=== PATIENT | male | born 1950 | race Caucasian/White ===

== ENCOUNTER 2016-10-18 11:16 | Inpatient (IN) | payer OTHER ==
[2016-10-18 11:47] VITALS: BMI 24.1
--- NOTE | 2016-10-18 13:26 | HP ---
COWS - Scale Resting Pulse: 0= [place] 80 or Below Sweatin= Chills/Flushing Restless Observation: 1= Difficult to Sit Still Pupil Size: 0= Normal to Room Light Bone or Joint Aches: 1= Mild Discomfort Runny Nose/ Eye Tearin= Nasal Congestion GI Upset > 30mins: 1= Stomach Cramp Tremor Observation: 2= Slight Tremor Visible Yawning Observation: 1= 1-2x During Session Anxiety or Irritability: 1=Feels Anxious/Irritable Goose Flesh Skin: 0=Smooth Skin COWS Score: 9 Admission ROS BHS - HPI Chief Complaint: I need to get clean, start off good Allergies/Adverse Reactions: Allergies Allergy/AdvReac Type Severity Reaction Status Date / Time Penicillins Allergy Verified 10/18/16 13:18 History of Present Illness: 66 yo gentleman here for detox from heroin - history of being drug free for seven years and recently relapsed with a girl. No seizures, does had black outs. Exam Limitations: Clinical Condition - Ebola screening Have you traveled outside of the country in the last 21 days: No Have you had contact with anyone from an Ebola affected area: No Have you been sick,other than usual withdrawal symptoms: No Do you have a fever: No - Review of Systems Constitutional: Loss of Appetite, Malaise, Changes in sleep, Weakness EENT: reports: Blurred Vision, Nose Congestion Respiratory: reports: No Symptoms reported Cardiac: reports: No Symptoms Reported GI: reports: Diarrhea, Poor Appetite, Indigestion : reports: No Symptoms Reported Musculoskeletal: reports: Back Pain, Muscle Pain Neuro: reports: Headache Endocrine: reports: No Symptoms Reported Hematology: reports: No Symptoms Reported Psychiatric: reports: Judgement Intact, Mood/Affect Appropiate, Orientated x3, Anxious Other Systems: Reviewed and Negative Patient History - Patient Medical History Hx Anemia: No Hx Asthma: No Hx Cancer: No Hx Cardiac Disorders: No Hx Congestive Heart Failure: No Hx Hypertension: No Hx Hypercholesterolemia: No Hx Pacemaker: No HX Cerebrovascular Accident: No Hx Seizures: No Hx Diabetes: No Hx Gastrointestinal Disorders: No Hx Liver Disease: No Hx Genitourinary Disorders: No Hx Sexually Transmitted Disorders: No Hx Renal Disease (ESRD): No Hx Thyroid Disease: No Hx Human Immunodeficiency Virus (HIV): No Hx Hepatitis C: Yes (treated with Harvoni and 'cleared') Hx Depression: Yes (never treated) Hx Suicide Attempt: No Hx Bipolar Disorder: No Hx Schizophrenia: No - Patient Surgical History Past Surgical History: Yes Other Surgical History: abscess 1996 I & D left shoulder due to heroin use - PPD History Previous Implant?: Yes Documented Results: Negative w/o proof PPD to be Administered?: Yes - Reproductive History Patient is a Female of Child Bearing Age (11 -55 yrs old): No (male) - Smoking Cessation Smoking history: Former smoker Have you smoked in the past 12 months: No Initiated information on smoking cessation: No - Substance & Tx. History Hx Alcohol Use: No Hx Substance Use: Yes Substance Use Type: Heroin Hx Substance Use Treatment: Yes - Substances Abused Heroin Route: Injection Frequency: Daily Amount used: 5 bags Age of first use: 18 Date of Last Use: 10/18/16 Family Disease History - Family Disease History Family Disease History: CA: Mother (), Sister (6 (3 living)), Other: Father (, age 102), Mother, Brother (7 (3 living), 'natural cause'), Sister Admission Physical Exam [facility] - Vital Signs Vital Signs: Vital Signs - 24 hr 10/18/16 11:45 Temperature 97.1 F L Pulse Rate 80 Respiratory 18 Rate Blood Pressure 138/70 - Physical General Appearance: Yes: Nourished, Appropriately Dressed, Mild Distress, Anxious HEENTM: Yes: Hearing grossly Normal, Normocephalic, Normal Voice, Pharynx Normal Respiratory: Yes: Normal Breath Sounds, No Respiratory Distress Neck: Yes: No masses,lesions,Nodules, Supple Breast: Yes: Breast Exam Deferred Cardiology: Yes: Regular Rhythm, Regular Rate Abdominal: Yes: Soft Genitourinary: Yes: Within Normal Limits Back: Yes: Decreased Range of Motion Musculoskeletal: Yes: full range of Motion, Gait Steady Extremities: Yes: Normal Inspection, Non-Tender Neurological: Yes: Fully Oriented, Alert, Normal Mood/Affect, Normal Response Integumentary: Yes: Normal Color, Warm, Track Oden (both arms, right hand with slightly red raised non painful lesion) Lymphatic: Yes: Within Normal Limits - Diagnostic (1) Uncomplicated opioid dependence Current Visit: Yes Status: Chronic (2) Hepatitis C Current Visit: Yes Status: Resolved Comment: treated with nikki Villalba Cleared for Admission [facility] - Detox or Rehab [facility] Level of Care: Medically Managed Detox Regimen/Protocol: Methadone BHS Breath Alcohol Content Breath Alcohol Content: 0 Urine Drug Screen - Results Drug Screen Negative: No Urine Drug Screen Results: OPI-Opiates
[2016-10-18] MEDS ORDERED: LOPERAMIDE HCL 2 MG CAPSULE PO PRN (13:34)
[2016-10-18] MEDS ORDERED: diphenhydrAMINE HCL 50 MG CAPSULE PO PRN (13:34)
[2016-10-18] MEDS ORDERED: MAG HYDROX/AL HYDROX/SIMETH 30 ML UNIT-DOSE CUP PO PRN (13:34)
[2016-10-18] MEDS ORDERED: IBUPROFEN 400 MG TABLET (FP) PO PRN (13:34)
[2016-10-18] MEDS ORDERED: ACETAMINOPHEN 325 MG TABLET (FP) PO PRN (13:34)
[2016-10-18] MEDS ORDERED: MENTHOL/PHENOL 1 EACH UD MM PRN (13:34)
[2016-10-18] MEDS ORDERED: MAGNESIUM HYDROX 2400MG/30ML ORAL SUSPENSION 30 ML CUP PO PRN (13:34)
[2016-10-18] MEDS ORDERED: MAGNESIUM CITRATE 300 ML BOTTLE PO PRN (13:34)
[2016-10-18] MEDS ORDERED: guaiFENesin/D-METHORPHAN HB 10 ML UNIT-DOSE CUPS PO PRN (13:34)
[2016-10-18] MEDS ORDERED: P-EPHED 60MG/TRIPROLIDI 2.5MG TABLET PO PRN (13:34)
[2016-10-18] MEDS ORDERED: TRIAMCINOLONE ACET 0.1% CREAM 15 GM TUBE TP PRN (13:40)
[2016-10-18] MEDS ORDERED: METHADONE HCL 10 MG TABLET (FOR DETOX USE ONLY) PO ONE ×3 (15:00→23:00)
[2016-10-18] MEDS: diazePAM 5 MG TABLET PO PRN (18:52)
[2016-10-18] MEDS: THIAMINE HCL 100 MG TABLET (FP) PO SCH (22:26)
[2016-10-18 23:19] LABS: URINE APPEARANCE SLCLOUDY; URINE BILIRUBIN NEGATIVE (NEGATIVE); URINE BLOOD NEGATIVE (NEGATIVE); URINE COLOR YELLOW; URINE GLUCOSE (UA) NEGATIVE (NEGATIVE); URINE KETONE NEGATIVE (NEGATIVE); URINE LEUK ESTERASE NEGATIVE (NEGATIVE); URINE NITRITE NEGATIVE (NEGATIVE); URINE PROTEIN NEGATIVE (NEGATIVE); URINE UROBILINOGEN NEGATIVE mg/dL (0.2-1.0)
[2016-10-19] MEDS ORDERED: METHADONE HCL 10 MG TABLET (FOR DETOX USE ONLY) PO ONE (10:00)
[2016-10-19] MEDS: PRENATAL VITAMINS W/ FOLIC ACID TABLET (FP) PO SCH (10:16)
[2016-10-19 10:27] LABS: MCH 31.5 pg (25.7-33.7); MCHC 34.4 g/dl (32.0-35.9); MEAN CELL VOLUME 91.7 fl (80-96); MEAN PLT VOLUME 8.5 fl (7.5-11.1); PLATELET COUNT 172 K/MM3 (134-434); RDW 13.1 % (11.9-15.9); WHITE BLOOD COUNT 5.7 K/mm3 (4.0-10.0)
[2016-10-19 10:52] LABS: ALBUMIN 3.4 g/dl (3.4-5.0); ANION GAP 5 (8-16); CALCIUM 8.5 mg/dL (8.5-10.1); CO2 29 mmol/L (21-32); GLUCOSE,RANDOM 97 mg/dL (74-106)
[2016-10-19 10:56] LABS: ALK PHOS 78 U/L (45-117); BILIRUBIN,TOTAL 0.4 mg/dL (0.2-1.0); CREATININE 1.2 mg/dL (0.7-1.3); SGOT/AST 19 U/L (15-37); SGPT/ALT 26 U/L (12-78); TOT PROT 7.1 g/dl (6.4-8.2)
--- NOTE | 2016-10-19 11:59 | PN ---
S COWS - Scale Resting Pulse: 0= [place] 80 or Below Sweatin= Chills/Flushing Restless Observation: 3= Extraneous Movement Pupil Size: 1= Pupils >than Normal Bone or Joint Aches: 2= Severe Diffuse Aches Runny Nose/ Eye Tearin= Runny Nose/Eyes GI Upset > 30mins: 2= Nausea/Diarrhea Tremor Observation of Outstretched Hands: 2= Slight Tremor Visible Yawning Observation: 1= 1-2x During Session Anxiety or Irritability: 2=Irritable/Anxious Goose Flesh Skin: 0=Smooth Skin COWS Score: 16 S Progress Note (SOAP) Subjective: ALERT,IRRITABLE,ANXIOUS,INTERRUPTED SLEEP,TREMOR,PAIN IN THE BODY AND BACK Objective: 10/19/16 11:56 Vital Signs Temperature 97 F L 10/19/16 10:34 Pulse Rate 69 10/19/16 10:34 Respiratory Rate 16 10/19/16 10:34 Blood Pressure 137/83 10/19/16 10:34 O2 Sat by Pulse Oximetry (%) EKG NSR,EMMA ECG Laboratory Last Values WBC 5.7 K/mm3 (4.0-10.0) 10/19/16 07:45 RBC 3.74 M/mm3 (4.00-5.60) L 10/19/16 07:45 Hgb 11.8 GM/dL (11.7-16.9) 10/19/16 07:45 Hct 34.3 % (35.4-49) L 10/19/16 07:45 MCV 91.7 fl (80-96) 10/19/16 07:45 MCH 31.5 pg (25.7-33.7) 10/19/16 07:45 MCHC 34.4 g/dl (32.0-35.9) 10/19/16 07:45 RDW 13.1 % (11.9-15.9) 10/19/16 07:45 Plt Count 172 K/MM3 (134-434) 10/19/16 07:45 MPV 8.5 fl (7.5-11.1) 10/19/16 07:45 Sodium 140 mmol/L (136-145) 10/19/16 07:45 Potassium 4.2 mmol/L (3.5-5.1) 10/19/16 07:45 Chloride 106 mmol/L (98-107) 10/19/16 07:45 Carbon Dioxide 29 mmol/L (21-32) 10/19/16 07:45 Anion Gap 5 (8-16) L 10/19/16 07:45 BUN 23 mg/dL (7-18) H 10/19/16 07:45 Creatinine 1.2 mg/dL (0.7-1.3) 10/19/16 07:45 Creat Clearance w eGFR > 60 (>60) 10/19/16 07:45 Random Glucose 97 mg/dL (74-106) 10/19/16 07:45 Calcium 8.5 mg/dL (8.5-10.1) 10/19/16 07:45 Total Bilirubin 0.4 mg/dL (0.2-1.0) 10/19/16 07:45 AST 19 U/L (15-37) 10/19/16 07:45 ALT 26 U/L (12-78) 10/19/16 07:45 Alkaline Phosphatase 78 U/L (45-117) 10/19/16 07:45 Total Protein 7.1 g/dl (6.4-8.2) 10/19/16 07:45 Albumin 3.4 g/dl (3.4-5.0) 10/19/16 07:45 Urine Color Yellow 10/18/16 23:10 Urine Appearance Slcloudy 10/18/16 23:10 Urine pH 5.0 (5.0-8.0) 10/18/16 23:10 Ur Specific [place] 1.025 (1.005-1.025) 10/18/16 23:10 Urine Protein Negative (NEGATIVE) 10/18/16 23:10 Urine Glucose (UA) Negative (NEGATIVE) 10/18/16 23:10 Urine Ketones Negative (NEGATIVE) 10/18/16 23:10 Urine Blood Negative (NEGATIVE) 10/18/16 23:10 Urine Nitrite Negative (NEGATIVE) 10/18/16 23:10 Urine Bilirubin Negative (NEGATIVE) 10/18/16 23:10 Urine Urobilinogen Negative mg/dL (0.2-1.0) 10/18/16 23:10 Ur Leukocyte Esterase Negative (NEGATIVE) 10/18/16 23:10 Assessment: 10/19/16 11:57 WITHDRAWAL SYMPTOM Plan: CONTINUE DETOX,ENCOURAGE ORAL FLUID,REPEAT BMP IN AM
--- NOTE | 2016-10-19 12:53 | EKG ---
Test Reason : Blood Pressure : / mmHG Vent. Rate : 078 BPM Atrial Rate : 078 BPM P-R Int : 178 ms QRS Dur : 076 ms QT Int : 414 ms P-R-T Axes : 075 007 021 degrees QTc Int : 471 ms POOR DATA QUALITY, INTERPRETATION MAY BE ADVERSELY AFFECTED NORMAL SINUS RHYTHM NORMAL ECG NO PREVIOUS ECGS AVAILABLE Confirmed by MERE HEAD MD ([id number]) on 10/19/2016 12:53:26 PM Referred By: Confirmed By:MERE HEAD MD
[2016-10-19] MEDS: THIAMINE HCL 100 MG TABLET (FP) PO SCH (22:18)
--- NOTE | 2016-10-20 08:41 | CONSULT ---
[facility] Psychiatric Consult - Data Date of interview: 10/20/16 Admission source: [facility] Identifying data: This is 66 years old male with no psychiatric hopspitalization history intoxicated with: Opioids Substance Abuse History: - Smoking Cessation. Smoking history: Former smoker. Have you smoked in the past 12 months: No. Initiated information on smoking cessation: No. - Substance & Tx. History. Hx Alcohol Use: No. Hx Substance Use: Yes. Substance Use Type: Heroin. Hx Substance Use Treatment: Yes. - Substances Abused. Heroin. Route: Injection. Frequency: Daily. Amount used: 5 bags. Age of first use: 18. Date of Last Use: 10/18/16 Medical History: Hep C+ Psychiatric History: Denies past psychiatric hiistory Physical/Sexual Abuse/Trauma History: Denies Additional Comment: Observation. Detox Unit Care Protocol Mental Status Exam - Mental Status Exam Alert and Oriented to: Person Cognitive Function: Fair Patient Appearance: Unkempt Mood: Anxious Affect: Mood Congruent Patient Behavior: Cooperative Speech Pattern: Appropriate Voice Loudness: Normal Thought Process: Goal Oriented Thought Disorder: Being Controlled Hallucinations: Denies Suicidal Ideation: Denies Homicidal Ideation: Denies Insight/Judgement: Fair Sleep: Difficulty falling asleep Appetite: Fair Muscle strength/Tone: Normal Gait/Station: Normal Additional Comments: Observation. 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 Detox Unit Care Protocol
[2016-10-20] MEDS ORDERED: METHADONE HCL 5 MG TABLET (FOR DETOX USE ONLY) PO ONE (10:00)
[2016-10-20] MEDS: PRENATAL VITAMINS W/ FOLIC ACID TABLET (FP) PO SCH (10:11)
[2016-10-20] MEDS: diazePAM 5 MG TABLET PO PRN ×3 (10:13→22:06)
[2016-10-20 10:22] LABS: ANION GAP 7 (8-16); CO2 30 mmol/L (21-32); CREATININE 1.1 mg/dL (0.7-1.3); GLUCOSE,RANDOM 98 mg/dL (74-106)
--- NOTE | 2016-10-20 11:17 | PN ---
BHS COWS - Scale Resting Pulse: 0= [place] 80 or Below Sweatin= Chills/Flushing Restless Observation: 3= Extraneous Movement Pupil Size: 1= Pupils >than Normal Bone or Joint Aches: 2= Severe Diffuse Aches Runny Nose/ Eye Tearin= Runny Nose/Eyes GI Upset > 30mins: 3= Vomiting/Diarrhea Tremor Observation of Outstretched Hands: 2= Slight Tremor Visible Yawning Observation: 1= 1-2x During Session Anxiety or Irritability: 2=Irritable/Anxious Goose Flesh Skin: 0=Smooth Skin COWS Score: 17 BHS Progress Note (SOAP) Subjective: ALERT,IRRITABLE,ANXIOUS,INTERRUPTED SLEEP,TREMOR,PAIN IN THE BODY AND BACK Objective: 10/20/16 11:15 Vital Signs Temperature 98.4 F 10/20/16 10:36 Pulse Rate 66 10/20/16 10:36 Respiratory Rate 16 10/20/16 10:36 Blood Pressure 148/95 10/20/16 10:36 O2 Sat by Pulse Oximetry (%) Assessment: 10/20/16 11:16 WITHDRAWAL SYMPTOM Plan: CONTINUE DETOX,ENCOURAGE ORAL FLUID,REPEAT BMP PENDING
[2016-10-20] MEDS: THIAMINE HCL 100 MG TABLET (FP) PO SCH (22:06)
--- NOTE | 2016-10-21 09:55 | PN ---
S Progress Note (SOAP) Subjective: ALERT,IRRITABLE,ANXIOUS,INTERRUPTED SLEEP,PAIN IN THE BODY AND BACK Objective: 10/21/16 09:54 Vital Signs Temperature 97.7 F 10/21/16 09:21 Pulse Rate 58 L 10/21/16 09:21 Respiratory Rate 18 10/21/16 09:21 Blood Pressure 147/94 10/21/16 09:21 O2 Sat by Pulse Oximetry (%) Assessment: 10/21/16 09:54 WITHDRAWAL SYMPTOM Plan: CONTINUE DETOX
[2016-10-21] MEDS ORDERED: METHADONE HCL 5 MG TABLET (FOR DETOX USE ONLY) PO ONE (10:00)
[2016-10-21] MEDS: PRENATAL VITAMINS W/ FOLIC ACID TABLET (FP) PO SCH (10:03)
[2016-10-21] MEDS: diazePAM 5 MG TABLET PO PRN (10:04)
[2016-10-21] MEDS: hydrOXYzine PAMOATE 50 MG CAPSULE (FP) PO PRN (14:19)
[2016-10-21] MEDS: THIAMINE HCL 100 MG TABLET (FP) PO SCH (22:24)
--- NOTE | 2016-10-22 09:39 | PN ---
BHS Progress Note (SOAP) Subjective: lbp, anxious, needs cane Objective: 10/22/16 09:37 Vital Signs Temperature 97.9 F 10/21/16 21:24 Pulse Rate 65 10/21/16 21:24 Respiratory Rate 18 10/22/16 00:30 Blood Pressure 134/88 10/21/16 21:24 O2 Sat by Pulse Oximetry (%) Laboratory Tests 10/18/16 10/19/16 10/19/16 23:10 07:45 07:45 WBC 5.7 RBC 3.74 L Hgb 11.8 Hct 34.3 L MCV 91.7 MCH 31.5 MCHC 34.4 RDW 13.1 Plt Count 172 MPV 8.5 Sodium 140 Potassium 4.2 Chloride 106 Carbon Dioxide 29 Anion Gap 5 L BUN 23 H Creatinine 1.2 Creat Clearance w eGFR > 60 Random Glucose 97 Calcium 8.5 Total Bilirubin 0.4 AST 19 ALT 26 Alkaline Phosphatase 78 Total Protein 7.1 Albumin 3.4 Urine Color Yellow Urine Appearance Slcloudy Urine pH 5.0 Ur Specific [place] 1.025 Urine Protein Negative Urine Glucose (UA) Negative Urine Ketones Negative Urine Blood Negative Urine Nitrite Negative Urine Bilirubin Negative Urine Urobilinogen Negative Ur Leukocyte Esterase Negative RPR Titer 10/19/16 10/20/16 07:45 07:00 WBC RBC Hgb Hct MCV MCH MCHC RDW Plt Count MPV Sodium 141 Potassium 4.8 Chloride 104 Carbon Dioxide 30 Anion Gap 7 L BUN 17 D Creatinine 1.1 Creat Clearance w eGFR Random Glucose 98 Calcium 9.0 Total Bilirubin AST ALT Alkaline Phosphatase Total Protein Albumin Urine Color Urine Appearance Urine pH Ur Specific [place] Urine Protein Urine Glucose (UA) Urine Ketones Urine Blood Urine Nitrite Urine Bilirubin Urine Urobilinogen Ur Leukocyte Esterase RPR Titer Nonreactive pt aox3 in nad lying in bed Assessment: 10/22/16 09:38 withdrawal sx's Plan: cont. detox increase fluids cane d/c in am
[2016-10-22] MEDS ORDERED: METHADONE HCL 10 MG TABLET (FOR DETOX USE ONLY) PO ONE (10:00)
[2016-10-22] MEDS: PRENATAL VITAMINS W/ FOLIC ACID TABLET (FP) PO SCH (10:10)
[2016-10-22] MEDS: hydrOXYzine PAMOATE 50 MG CAPSULE (FP) PO PRN (20:11)
[2016-10-22] MEDS: THIAMINE HCL 100 MG TABLET (FP) PO SCH (22:26)
[2016-10-23] MEDS ORDERED: METHADONE HCL 5 MG TABLET (FOR DETOX USE ONLY) PO ONE (06:00)
[2016-10-23 06:16] VITALS: BP 147/89; PULSE 60; TEMP 97.9
--- NOTE | 2016-10-23 08:38 | DS ---
[facility] Detox Discharge Summary Admission Date: 10/18/16 Discharge Date: 10/23/16 - History Present History: Opioid Dependence - Physical Exam Results Vital Signs: Vital Signs Temperature 97.9 F 10/23/16 06:15 Pulse Rate 60 10/23/16 06:15 Respiratory Rate 16 10/23/16 06:15 Blood Pressure 147/89 10/23/16 06:15 O2 Sat by Pulse Oximetry (%) - Treatment Hospital Course: Detox Protocol Followed, Detoxed Safely, Responded well, Discharged Condition Good, Rehab Referral Accepted - Medication Discharge Medications: Ambulatory Orders Triamcinolone Acetonide 1 applic TP BID PRN 10/18/16 - Diagnosis (1) Uncomplicated opioid dependence Current Visit: Yes Status: Chronic (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
[2016-10-23] MEDS: hydrOXYzine PAMOATE 50 MG CAPSULE (FP) PO PRN (08:56)
== END 2016-10-23 09:00 | disposition home or self-care (01) | DRG 897 ==
LOC: YASAS 11:16 → Y6N 17:05
PROVIDERS: ADMIT Internal Medicine; ATTEND Internal Medicine
PROC: HZ2ZZZZ Detoxification Services for Substance Abuse Treatment (ICD-10-PCS; principal; 2016-10-23)
DX: F11.20 Opioid dependence, uncomplicated (principal); F19.280 Other psychoactive substance dependence with psychoactive substance-induced anxiety disorder; F19.24 Other psychoactive substance dependence with psychoactive substance-induced mood disorder; B18.2 Chronic viral hepatitis C
CPT/HCPCS: 36415; 80048; 80053; 81003; 85027; 86593; 93005; 93010

== ENCOUNTER 2016-12-13 14:59 | Inpatient (IN) | payer OTHER ==
[2016-12-13 16:11] VITALS: BMI 27.7
--- NOTE | 2016-12-13 17:23 | HP ---
COWS - Scale Resting Pulse: 0= [place] 80 or Below Sweatin= Chills/Flushing Restless Observation: 3= Extraneous Movement Pupil Size: 2= Moderately Dilated Bone or Joint Aches: 2= Severe Diffuse Aches Runny Nose/ Eye Tearin= Runny Nose/Eyes GI Upset > 30mins: 3= Vomiting/Diarrhea Tremor Observation: 2= Slight Tremor Visible Yawning Observation: 2= >3x During Session Anxiety or Irritability: 2=Irritable/Anxious Goose Flesh Skin: 0=Smooth Skin COWS Score: 19 CIWA Score - CIWA Score Nausea/Vomitin Muscle Tremors: 3 Anxiety: 3 Agitation: 3 Paroxysmal Sweats: 2 Orientation: 0-Oriented Tacttile Disturbances: 2-Mild Itch/Numbness/Burn Auditory Disturbances: 2-Mild Harshness/Frighten Visual Disturbances: 1-Very Mild Sensitivity Headache: 2-Mild CIWA-Ar Total Score: 21 Admission ROS BHS - HPI Chief Complaint: i need help to stop using heroin,klonopin Allergies/Adverse Reactions: Allergies Allergy/AdvReac Type Severity Reaction Status Date / Time Penicillins Allergy Verified 12/13/16 16:19 History of Present Illness: this 66 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 Loss EENT: reports: Tearing, Nose Congestion Respiratory: reports: No Symptoms reported Cardiac: reports: Palpitations GI: reports: Diarrhea, Nausea, Vomiting : reports: No Symptoms Reported Musculoskeletal: reports: Muscle Pain Integumentary: reports: Dryness Neuro: reports: Headache, Tremors Endocrine: reports: No Symptoms Reported Hematology: reports: No Symptoms Reported Psychiatric: reports: No Sypmtoms Reported, Judgement Intact, Mood/Affect Appropiate Other Systems: Reviewed and Negative Patient History - Patient Medical History Hx Anemia: No Hx Asthma: No Hx Chronic Obstructive Pulmonary Disease (COPD): No Hx Cancer: No Hx Cardiac Disorders: No Hx Congestive Heart Failure: No Hx Hypertension: No Hx Hypercholesterolemia: No Hx Pacemaker: No HX Cerebrovascular Accident: No Hx Seizures: No Hx Diabetes: No Hx Gastrointestinal Disorders: No Hx Liver Disease: No Hx Genitourinary Disorders: No Hx Sexually Transmitted Disorders: No Hx Renal Disease (ESRD): No Hx Thyroid Disease: No Hx Human Immunodeficiency Virus (HIV): No (last 2015 negative) Hx Hepatitis C: Yes (treated with Harvoni and 'cleared') Hx Depression: No Hx Suicide Attempt: No Hx Bipolar Disorder: No Hx Schizophrenia: No Other Medical History: no suicidal.no homicidal - Patient Surgical History Past Surgical History: Yes Hx Neurologic Surgery: No Hx Cataract Extraction: No Hx Cardiac Surgery: No Hx Lung Surgery: No Hx Breast Surgery: No Hx Breast Biopsy: No Hx Abdominal Surgery: No Hx Appendectomy: No Hx Cholecystectomy: No Hx Genitourinary Surgery: No Hx Section: No Hx Orthopedic Surgery: No Other Surgical History: abscess 1996 I & D left shoulder due to heroin use Anesthesia Reaction: No - PPD History Previous Implant?: Yes Documented Results: Negative w/proof Date: 10/20/16 Results: 0 mm PPD to be Administered?: No - Smoking Cessation Smoking history: Never smoked Have you smoked in the past 12 months: No Hx Chewing Tobacco Use: No Initiated information on smoking cessation: No - Substance & Tx. History Hx Alcohol Use: No Hx Substance Use: Yes Substance Use Type: Heroin, Tranquilizers Hx Substance Use Treatment: Yes ([facility] 10/18/16 to 10/23/16) - Substances Abused Heroin Route: Injection Frequency: Daily Amount used: 3-4 bags Age of first use: 19 Date of Last Use: 12/13/16 Klonopin Route: Oral Frequency: 1-2 times per week Amount used: 1 mg. Age of first use: 63 Date of Last Use: 12/25/16 Street methadone Route: Oral Frequency: 1-2 times per week Amount used: 25 mg. Age of first use: 59 Date of Last Use: 12/12/16 Family Disease History - Family Disease History Family Disease History: [place]: Mother (), Sister (6 (3 living)), Other: Father (, age 102), Mother, Brother (7 (3 living), 'natural cause'), Sister Admission Physical Exam [facility] - Vital Signs Vital Signs: Vital Signs - 24 hr 12/13/16 16:06 Temperature 97.7 F Pulse Rate 68 Respiratory 16 Rate Blood Pressure 144/89 - Physical General Appearance: Yes: Moderate Distress, Tremorous, Irritable, Sweating, Anxious HEENTM: Yes: Normal ENT Inspection, IZAIAH, Pharynx Normal Respiratory: Yes: Lungs Clear, Normal Breath Sounds, No Respiratory Distress Neck: Yes: Within Normal Limits, Supple, Trachea in good position Breast: Yes: Within Normal Limits Cardiology: Yes: Within Normal Limits, Regular Rhythm, Regular Rate, S1, S2 Abdominal: Yes: Within Normal Limits, Normal Bowel Sounds, Non Tender, Flat, Soft Genitourinary: Yes: Within Normal Limits Musculoskeletal: Yes: Within Normal Limits, Back pain, Muscle Pain Extremities: Yes: Normal Range of Motion, Tremors Neurological: Yes: service supervisor II-XII NML intact, Fully Oriented, Alert, Motor Strength 5/5 Integumentary: Yes: Dry, Track Oden (abscess both wrist) Lymphatic: Yes: Within Normal Limits - Diagnostic (1) Opioid dependence with withdrawal Current Visit: Yes Status: Acute (2) Abscess of bursae of both wrists Current Visit: Yes Status: Acute (3) Hepatitis C Current Visit: No Status: Chronic Qualifiers: Viral hepatitis chronicity: chronic Hepatic coma status: without hepatic coma Qualified Code(s): B18.2 - Chronic viral hepatitis C; B18.2 - Chronic viral hepatitis C; B18.2 - Chronic viral hepatitis C; B18.2 - Chronic viral hepatitis C Comment: treated with nikki 2015 (4) Weight loss Current Visit: Yes Status: Acute (5) Uncomplicated sedative, hypnotic or anxiolytic withdrawal Current Visit: Yes Status: Acute Cleared for Admission S - Detox or Rehab [facility] Level of Care: Medically Managed Detox Regimen/Protocol: Methadone/Valium S Breath Alcohol Content Breath Alcohol Content: 0 Urine Drug Screen - Results Drug Screen Negative: No Urine Drug Screen Results: OPI-Opiates, BZO-Benzodiazepines, MTD-Methadone
[2016-12-13] MEDS ORDERED: MAG HYDROX/AL HYDROX/SIMETH 30 ML UNIT-DOSE CUP PO PRN (17:38)
[2016-12-13] MEDS ORDERED: MENTHOL/PHENOL 1 EACH UD MM PRN (17:38)
[2016-12-13] MEDS ORDERED: P-EPHED 60MG/TRIPROLIDI 2.5MG TABLET PO PRN (17:38)
[2016-12-13] MEDS ORDERED: MAGNESIUM CITRATE 300 ML BOTTLE PO PRN (17:38)
[2016-12-13] MEDS ORDERED: MAGNESIUM HYDROX 2400MG/30ML ORAL SUSPENSION 30 ML CUP PO PRN (17:38)
[2016-12-13] MEDS ORDERED: guaiFENesin/D-METHORPHAN HB 10 ML UNIT-DOSE CUPS PO PRN (17:38)
[2016-12-13] MEDS ORDERED: diazePAM 5 MG TABLET PO ONE (17:38)
[2016-12-13] MEDS ORDERED: METHADONE HCL 10 MG TABLET (FOR DETOX USE ONLY) PO ONE ×2 (17:38→23:00)
[2016-12-13] MEDS ORDERED: LOPERAMIDE HCL 2 MG CAPSULE PO PRN (17:38)
[2016-12-13] MEDS ORDERED: diphenhydrAMINE HCL 50 MG CAPSULE PO PRN (17:38)
[2016-12-13] MEDS ORDERED: ACETAMINOPHEN 325 MG TABLET (FP) PO PRN (17:38)
[2016-12-13] MEDS ORDERED: IBUPROFEN 400 MG TABLET (FP) PO PRN (17:38)
[2016-12-13] MEDS: CLINDAMYCIN HCL 150 MG CAPSULE (FP) PO SCH ×2 (18:20→23:26)
[2016-12-13] MEDS: THIAMINE HCL 100 MG TABLET (FP) PO SCH (22:45)
[2016-12-13] MEDS: diazePAM 5 MG TABLET PO SCH (22:45)
[2016-12-14] MEDS: diazePAM 5 MG TABLET PO SCH ×3 (05:32→22:33)
[2016-12-14] MEDS: CLINDAMYCIN HCL 150 MG CAPSULE (FP) PO SCH ×3 (05:32→17:32)
[2016-12-14] MEDS ORDERED: METHADONE HCL 10 MG TABLET (FOR DETOX USE ONLY) PO SCH (10:00)
[2016-12-14] MEDS: diazePAM 5 MG TABLET PO PRN ×2 (10:31→17:33)
[2016-12-14] MEDS: PRENATAL VITAMINS W/ FOLIC ACID TABLET (FP) PO SCH (10:31)
[2016-12-14 11:34] LABS: MCHC 33.2 g/dl (32.0-35.9); MEAN CELL VOLUME 90.5 fl (80-96); MEAN PLT VOLUME 8.3 fl (7.5-11.1); PLATELET COUNT 158 K/MM3 (134-434); WHITE BLOOD COUNT 6.6 K/mm3 (4.0-10.0)
--- NOTE | 2016-12-14 11:37 | EKG ---
Test Reason : Blood Pressure : / mmHG Vent. Rate : 078 BPM Atrial Rate : 078 BPM P-R Int : 180 ms QRS Dur : 080 ms QT Int : 386 ms P-R-T Axes : 070 027 041 degrees QTc Int : 440 ms NORMAL SINUS RHYTHM NORMAL ECG WHEN COMPARED WITH ECG OF 18-OCT-2016 17:02, NO SIGNIFICANT CHANGE WAS FOUND Confirmed by BRETT KAYE MD ([id number]) on 12/14/2016 11:36:53 AM Referred By: Confirmed By:BRETT KAYE MD
--- NOTE | 2016-12-14 11:38 | PN ---
[facility] CIWA - CIWA Score Nausea/Vomitin-No Nausea/No Vomiting Muscle Tremors: 4-Moderate,w/Arms Extend Anxiety: 4-Mod. Anxious/Guarded Agitation: 4-Moderately Restless Paroxysmal Sweats: 1-Minimal Palms Moist Orientation: 0-Oriented Tacttile Disturbances: 3-Moderate Itch/Numb/Burn Auditory Disturbances: 0-None Visual Disturbances: 0-None Headache: 0-None Present CIWA-Ar Total Score: 16 BHS COWS - Scale Resting Pulse: 1= [place] 81-100 Sweatin= Chills/Flushing Restless Observation: 3= Extraneous Movement Pupil Size: 2= Moderately Dilated Bone or Joint Aches: 4=Acute Joint/Muscle Pain Runny Nose/ Eye Tearin= None GI Upset > 30mins: 0= None Tremor Observation of Outstretched Hands: 1= Tremor [place], Not Seen Yawning Observation: 2= >3x During Session Anxiety or Irritability: 1=Feels Anxious/Irritable Goose Flesh Skin: 0=Smooth Skin COWS Score: 15 S Progress Note (SOAP) Subjective: ANXIETY,SWEATS,CHILLS,FATIGUE. Objective: 12/14/16 11:38 Vital Signs Temperature 97.9 F 12/14/16 09:59 Pulse Rate 81 12/14/16 09:59 Respiratory Rate 18 12/14/16 09:59 Blood Pressure 115/65 12/14/16 09:59 O2 Sat by Pulse Oximetry (%) LABS PENDING Assessment: 12/14/16 11:38 WITHDRAWAL SX Plan: CONTINUE DETOX
[2016-12-14 11:48] LABS: ALBUMIN 3.2 g/dl (3.4-5.0); ALK PHOS 79 U/L (45-117); ANION GAP 8 (8-16); BILIRUBIN,TOTAL 0.2 mg/dL (0.2-1.0); CALCIUM 8.2 mg/dL (8.5-10.1); CO2 29 mmol/L (21-32); CREATININE 1.1 mg/dL (0.7-1.3); GLUCOSE,RANDOM 99 mg/dL (74-106); SGOT/AST 16 U/L (15-37); SGPT/ALT 18 U/L (12-78); TOT PROT 6.9 g/dl (6.4-8.2)
[2016-12-14 11:54] LABS: URINE APPEARANCE CLEAR; URINE BILIRUBIN NEGATIVE (NEGATIVE); URINE BLOOD 1+ (NEGATIVE); URINE COLOR LTYELLOW; URINE GLUCOSE (UA) NEGATIVE (NEGATIVE); URINE KETONE NEGATIVE (NEGATIVE); URINE NITRITE NEGATIVE (NEGATIVE); URINE PROTEIN NEGATIVE (NEGATIVE); URINE UROBILINOGEN NEGATIVE mg/dL (0.2-1.0)
[2016-12-14 12:01] LABS: URINE MUCUS RARE; URINE RBC 1 /hpf (0-3); URINE WBC 1 /hpf (3-5)
[2016-12-14 12:17] LABS: HIV 1 & 2 AB NEGATIVE; HIV 1 AGp24 NEGATIVE
[2016-12-14 15:24] LABS: URINE LEUK ESTERASE Negative (NEGATIVE)
[2016-12-14] MEDS: THIAMINE HCL 100 MG TABLET (FP) PO SCH (22:32)
[2016-12-15] MEDS: CLINDAMYCIN HCL 150 MG CAPSULE (FP) PO SCH ×4 (00:24→17:17)
[2016-12-15] MEDS: diazePAM 5 MG TABLET PO PRN ×2 (05:24→17:17)
[2016-12-15] MEDS: PRENATAL VITAMINS W/ FOLIC ACID TABLET (FP) PO SCH (10:40)
[2016-12-15] MEDS: METHADONE HCL 5 MG TABLET (FOR DETOX USE ONLY) PO SCH (10:40)
[2016-12-15] MEDS: diazePAM 5 MG TABLET PO SCH ×2 (10:40→22:30)
--- NOTE | 2016-12-15 11:42 | PN ---
[facility] CIWA - CIWA Score Nausea/Vomitin-No Nausea/No Vomiting Muscle Tremors: 4-Moderate,w/Arms Extend Anxiety: 4-Mod. Anxious/Guarded Agitation: 4-Moderately Restless Paroxysmal Sweats: 1-Minimal Palms Moist Orientation: 0-Oriented Tacttile Disturbances: 3-Moderate Itch/Numb/Burn Auditory Disturbances: 0-None Visual Disturbances: 0-None Headache: 0-None Present CIWA-Ar Total Score: 16 S COWS - Scale Resting Pulse: 0= [place] 80 or Below Sweatin= Chills/Flushing Restless Observation: 3= Extraneous Movement Pupil Size: 2= Moderately Dilated Bone or Joint Aches: 4=Acute Joint/Muscle Pain Runny Nose/ Eye Tearin= Nasal Congestion GI Upset > 30mins: 1= Stomach Cramp Tremor Observation of Outstretched Hands: 2= Slight Tremor Visible Yawning Observation: 2= >3x During Session Anxiety or Irritability: 2=Irritable/Anxious Goose Flesh Skin: 0=Smooth Skin COWS Score: 18 [facility] Progress Note (SOAP) Subjective: ANXIETY,FATIGUE,HOT/COLD CHILLS,MUSCLE ACHES,DIARRHEA. Objective: 12/15/16 11:41 Vital Signs Temperature 97.7 F 12/15/16 10:00 Pulse Rate 66 12/15/16 10:00 Respiratory Rate 18 12/15/16 10:00 Blood Pressure 135/75 12/15/16 10:00 O2 Sat by Pulse Oximetry (%) Laboratory Last Values WBC 6.6 K/mm3 (4.0-10.0) 12/14/16 07:45 RBC 3.89 M/mm3 (4.00-5.60) L 12/14/16 07:45 Hgb 11.7 GM/dL (11.7-16.9) 12/14/16 07:45 Hct 35.2 % (35.4-49) L 12/14/16 07:45 MCV 90.5 fl (80-96) 12/14/16 07:45 MCH 30.0 pg (25.7-33.7) 12/14/16 07:45 MCHC 33.2 g/dl (32.0-35.9) 12/14/16 07:45 RDW 13.0 % (11.9-15.9) 12/14/16 07:45 Plt Count 158 K/MM3 (134-434) 12/14/16 07:45 MPV 8.3 fl (7.5-11.1) 12/14/16 07:45 Sodium 141 mmol/L (136-145) 12/14/16 07:45 Potassium 4.3 mmol/L (3.5-5.1) 12/14/16 07:45 Chloride 104 mmol/L (98-107) 12/14/16 07:45 Carbon Dioxide 29 mmol/L (21-32) 12/14/16 07:45 Anion Gap 8 (8-16) 12/14/16 07:45 BUN 21 mg/dL (7-18) H D 12/14/16 07:45 Creatinine 1.1 mg/dL (0.7-1.3) 12/14/16 07:45 Creat Clearance w eGFR > 60 (>60) 12/14/16 07:45 Random Glucose 99 mg/dL (74-106) 12/14/16 07:45 Calcium 8.2 mg/dL (8.5-10.1) L 12/14/16 07:45 Total Bilirubin 0.2 mg/dL (0.2-1.0) D 12/14/16 07:45 AST 16 U/L (15-37) 12/14/16 07:45 ALT 18 U/L (12-78) D 12/14/16 07:45 Alkaline Phosphatase 79 U/L (45-117) 12/14/16 07:45 Total Protein 6.9 g/dl (6.4-8.2) 12/14/16 07:45 Albumin 3.2 g/dl (3.4-5.0) L 12/14/16 07:45 Urine Color Ltyellow 12/14/16 11:31 Urine Appearance Clear 12/14/16 11:31 Urine pH 5.0 (5.0-8.0) 12/14/16 11:31 Ur Specific [place] 1.015 (1.005-1.025) 12/14/16 11:31 Urine Protein Negative (NEGATIVE) 12/14/16 11:31 Urine Glucose (UA) Negative (NEGATIVE) 12/14/16 11:31 Urine Ketones Negative (NEGATIVE) 12/14/16 11:31 Urine Blood 1+ (NEGATIVE) H 12/14/16 11:31 Urine Nitrite Negative (NEGATIVE) 12/14/16 11:31 Urine Bilirubin Negative (NEGATIVE) 12/14/16 11:31 Urine Urobilinogen Negative mg/dL (0.2-1.0) 12/14/16 11:31 Ur Leukocyte Esterase Negative (NEGATIVE) 12/14/16 11:31 Urine RBC 1 /hpf (0-3) 12/14/16 11:31 Urine WBC 1 /hpf (3-5) 12/14/16 11:31 Urine Mucus Rare 12/14/16 11:31 RPR Titer Nonreactive (NONREACTIVE) 12/14/16 07:45 HIV 1&2 Antibody Screen Negative 12/14/16 08:00 HIV P24 Antigen Negative 12/14/16 08:00 Assessment: 12/15/16 11:41 WITHDRAWAL SX Plan: CONTINUE DETOX
[2016-12-15] MEDS: THIAMINE HCL 100 MG TABLET (FP) PO SCH (22:30)
[2016-12-16] MEDS: CLINDAMYCIN HCL 150 MG CAPSULE (FP) PO SCH ×5 (00:20→23:00)
[2016-12-16] MEDS: diazePAM 5 MG TABLET PO PRN ×2 (06:12→13:52)
[2016-12-16] MEDS: PRENATAL VITAMINS W/ FOLIC ACID TABLET (FP) PO SCH (10:50)
[2016-12-16] MEDS: METHADONE HCL 5 MG TABLET (FOR DETOX USE ONLY) PO SCH (10:50)
[2016-12-16] MEDS: diazePAM 5 MG TABLET PO SCH ×2 (10:50→22:40)
--- NOTE | 2016-12-16 11:33 | PN ---
[facility] Progress Note (SOAP) Subjective: ANXIETY,FATIGUE,SWEATS. Objective: 12/16/16 11:33 Vital Signs Temperature 97.3 F L 12/16/16 09:29 Pulse Rate 69 12/16/16 09:29 Respiratory Rate 18 12/16/16 09:29 Blood Pressure 114/74 12/16/16 09:29 O2 Sat by Pulse Oximetry (%) Laboratory Last Values WBC 6.6 K/mm3 (4.0-10.0) 12/14/16 07:45 RBC 3.89 M/mm3 (4.00-5.60) L 12/14/16 07:45 Hgb 11.7 GM/dL (11.7-16.9) 12/14/16 07:45 Hct 35.2 % (35.4-49) L 12/14/16 07:45 MCV 90.5 fl (80-96) 12/14/16 07:45 MCH 30.0 pg (25.7-33.7) 12/14/16 07:45 MCHC 33.2 g/dl (32.0-35.9) 12/14/16 07:45 RDW 13.0 % (11.9-15.9) 12/14/16 07:45 Plt Count 158 K/MM3 (134-434) 12/14/16 07:45 MPV 8.3 fl (7.5-11.1) 12/14/16 07:45 Sodium 141 mmol/L (136-145) 12/14/16 07:45 Potassium 4.3 mmol/L (3.5-5.1) 12/14/16 07:45 Chloride 104 mmol/L (98-107) 12/14/16 07:45 Carbon Dioxide 29 mmol/L (21-32) 12/14/16 07:45 Anion Gap 8 (8-16) 12/14/16 07:45 BUN 21 mg/dL (7-18) H D 12/14/16 07:45 Creatinine 1.1 mg/dL (0.7-1.3) 12/14/16 07:45 Creat Clearance w eGFR > 60 (>60) 12/14/16 07:45 Random Glucose 99 mg/dL (74-106) 12/14/16 07:45 Calcium 8.2 mg/dL (8.5-10.1) L 12/14/16 07:45 Total Bilirubin 0.2 mg/dL (0.2-1.0) D 12/14/16 07:45 AST 16 U/L (15-37) 12/14/16 07:45 ALT 18 U/L (12-78) D 12/14/16 07:45 Alkaline Phosphatase 79 U/L (45-117) 12/14/16 07:45 Total Protein 6.9 g/dl (6.4-8.2) 12/14/16 07:45 Albumin 3.2 g/dl (3.4-5.0) L 12/14/16 07:45 Urine Color Ltyellow 12/14/16 11:31 Urine Appearance Clear 12/14/16 11:31 Urine pH 5.0 (5.0-8.0) 12/14/16 11:31 Ur Specific [place] 1.015 (1.005-1.025) 12/14/16 11:31 Urine Protein Negative (NEGATIVE) 12/14/16 11:31 Urine Glucose (UA) Negative (NEGATIVE) 12/14/16 11:31 Urine Ketones Negative (NEGATIVE) 12/14/16 11:31 Urine Blood 1+ (NEGATIVE) H 12/14/16 11:31 Urine Nitrite Negative (NEGATIVE) 12/14/16 11:31 Urine Bilirubin Negative (NEGATIVE) 12/14/16 11:31 Urine Urobilinogen Negative mg/dL (0.2-1.0) 12/14/16 11:31 Ur Leukocyte Esterase Negative (NEGATIVE) 12/14/16 11:31 Urine RBC 1 /hpf (0-3) 12/14/16 11:31 Urine WBC 1 /hpf (3-5) 12/14/16 11:31 Urine Mucus Rare 12/14/16 11:31 RPR Titer Nonreactive (NONREACTIVE) 12/14/16 07:45 HIV 1&2 Antibody Screen Negative 12/14/16 08:00 HIV P24 Antigen Negative 12/14/16 08:00 Assessment: 12/16/16 11:33 WITHDRAWAL SX Plan: CONTINUE DETOX
[2016-12-16] MEDS: hydrOXYzine PAMOATE 25 MG CAPSULE (FP) PO PRN (17:16)
[2016-12-16] MEDS: THIAMINE HCL 100 MG TABLET (FP) PO SCH (22:40)
[2016-12-17] MEDS: CLINDAMYCIN HCL 150 MG CAPSULE (FP) PO SCH ×4 (06:00→23:05)
[2016-12-17] MEDS: hydrOXYzine PAMOATE 25 MG CAPSULE (FP) PO PRN (06:00)
[2016-12-17] MEDS ORDERED: diazePAM 5 MG TABLET PO SCH (10:00)
[2016-12-17] MEDS ORDERED: METHADONE HCL 10 MG TABLET (FOR DETOX USE ONLY) PO SCH (10:00)
[2016-12-17] MEDS: PRENATAL VITAMINS W/ FOLIC ACID TABLET (FP) PO SCH (10:53)
--- NOTE | 2016-12-17 12:20 | PN ---
[facility] Progress Note (SOAP) Subjective: FATIGUE,"WOOZY". ALERT O X 3. OOB AMBULATING ON UNIT. Objective: 12/17/16 12:19 Vital Signs Temperature 97.9 F 12/17/16 09:29 Pulse Rate 71 12/17/16 09:29 Respiratory Rate 18 12/17/16 09:29 Blood Pressure 150/75 12/17/16 09:29 O2 Sat by Pulse Oximetry (%) Laboratory Last Values WBC 6.6 K/mm3 (4.0-10.0) 12/14/16 07:45 RBC 3.89 M/mm3 (4.00-5.60) L 12/14/16 07:45 Hgb 11.7 GM/dL (11.7-16.9) 12/14/16 07:45 Hct 35.2 % (35.4-49) L 12/14/16 07:45 MCV 90.5 fl (80-96) 12/14/16 07:45 MCH 30.0 pg (25.7-33.7) 12/14/16 07:45 MCHC 33.2 g/dl (32.0-35.9) 12/14/16 07:45 RDW 13.0 % (11.9-15.9) 12/14/16 07:45 Plt Count 158 K/MM3 (134-434) 12/14/16 07:45 MPV 8.3 fl (7.5-11.1) 12/14/16 07:45 Sodium 141 mmol/L (136-145) 12/14/16 07:45 Potassium 4.3 mmol/L (3.5-5.1) 12/14/16 07:45 Chloride 104 mmol/L (98-107) 12/14/16 07:45 Carbon Dioxide 29 mmol/L (21-32) 12/14/16 07:45 Anion Gap 8 (8-16) 12/14/16 07:45 BUN 21 mg/dL (7-18) H D 12/14/16 07:45 Creatinine 1.1 mg/dL (0.7-1.3) 12/14/16 07:45 Creat Clearance w eGFR > 60 (>60) 12/14/16 07:45 Random Glucose 99 mg/dL (74-106) 12/14/16 07:45 Calcium 8.2 mg/dL (8.5-10.1) L 12/14/16 07:45 Total Bilirubin 0.2 mg/dL (0.2-1.0) D 12/14/16 07:45 AST 16 U/L (15-37) 12/14/16 07:45 ALT 18 U/L (12-78) D 12/14/16 07:45 Alkaline Phosphatase 79 U/L (45-117) 12/14/16 07:45 Total Protein 6.9 g/dl (6.4-8.2) 12/14/16 07:45 Albumin 3.2 g/dl (3.4-5.0) L 12/14/16 07:45 Urine Color Ltyellow 12/14/16 11:31 Urine Appearance Clear 12/14/16 11:31 Urine pH 5.0 (5.0-8.0) 12/14/16 11:31 Ur Specific [place] 1.015 (1.005-1.025) 12/14/16 11:31 Urine Protein Negative (NEGATIVE) 12/14/16 11:31 Urine Glucose (UA) Negative (NEGATIVE) 12/14/16 11:31 Urine Ketones Negative (NEGATIVE) 12/14/16 11:31 Urine Blood 1+ (NEGATIVE) H 12/14/16 11:31 Urine Nitrite Negative (NEGATIVE) 12/14/16 11:31 Urine Bilirubin Negative (NEGATIVE) 12/14/16 11:31 Urine Urobilinogen Negative mg/dL (0.2-1.0) 12/14/16 11:31 Ur Leukocyte Esterase Negative (NEGATIVE) 12/14/16 11:31 Urine RBC 1 /hpf (0-3) 12/14/16 11:31 Urine WBC 1 /hpf (3-5) 12/14/16 11:31 Urine Mucus Rare 12/14/16 11:31 RPR Titer Nonreactive (NONREACTIVE) 12/14/16 07:45 HIV 1&2 Antibody Screen Negative 12/14/16 08:00 HIV P24 Antigen Negative 12/14/16 08:00 Assessment: 12/17/16 12:19 WITHDRAWAL SX Plan: CONTINUE DETOX INCREASE PO FLUIDS.
[2016-12-17] MEDS: THIAMINE HCL 100 MG TABLET (FP) PO SCH (22:46)
[2016-12-18] MEDS: CLINDAMYCIN HCL 150 MG CAPSULE (FP) PO SCH (05:58)
[2016-12-18] MEDS ORDERED: METHADONE HCL 5 MG TABLET (FOR DETOX USE ONLY) PO SCH (06:00)
--- NOTE | 2016-12-18 09:01 | DS ---
[facility] Detox Discharge Summary Admission Date: 12/13/16 Discharge Date: 12/18/16 - History Present History: Opioid Dependence, Sedative Dependence Additional Comments: DETOX COMPLETED. Pertinent Past History: HEP C ASCESS BOTH WRISTS WEIGHT LOSS - Physical Exam Results Vital Signs: Vital Signs Temperature 97.9 F 12/18/16 06:41 Pulse Rate 78 12/18/16 06:41 Respiratory Rate 18 12/18/16 06:41 Blood Pressure 125/81 12/18/16 06:41 O2 Sat by Pulse Oximetry (%) Pertinent Admission Physical Exam Findings: WITHDRAWAL SX Laboratory Last Values WBC 6.6 K/mm3 (4.0-10.0) 12/14/16 07:45 RBC 3.89 M/mm3 (4.00-5.60) L 12/14/16 07:45 Hgb 11.7 GM/dL (11.7-16.9) 12/14/16 07:45 Hct 35.2 % (35.4-49) L 12/14/16 07:45 MCV 90.5 fl (80-96) 12/14/16 07:45 MCH 30.0 pg (25.7-33.7) 12/14/16 07:45 MCHC 33.2 g/dl (32.0-35.9) 12/14/16 07:45 RDW 13.0 % (11.9-15.9) 12/14/16 07:45 Plt Count 158 K/MM3 (134-434) 12/14/16 07:45 MPV 8.3 fl (7.5-11.1) 12/14/16 07:45 Sodium 141 mmol/L (136-145) 12/14/16 07:45 Potassium 4.3 mmol/L (3.5-5.1) 12/14/16 07:45 Chloride 104 mmol/L (98-107) 12/14/16 07:45 Carbon Dioxide 29 mmol/L (21-32) 12/14/16 07:45 Anion Gap 8 (8-16) 12/14/16 07:45 BUN 21 mg/dL (7-18) H D 12/14/16 07:45 Creatinine 1.1 mg/dL (0.7-1.3) 12/14/16 07:45 Creat Clearance w eGFR > 60 (>60) 12/14/16 07:45 Random Glucose 99 mg/dL (74-106) 12/14/16 07:45 Calcium 8.2 mg/dL (8.5-10.1) L 12/14/16 07:45 Total Bilirubin 0.2 mg/dL (0.2-1.0) D 12/14/16 07:45 AST 16 U/L (15-37) 12/14/16 07:45 ALT 18 U/L (12-78) D 12/14/16 07:45 Alkaline Phosphatase 79 U/L (45-117) 12/14/16 07:45 Total Protein 6.9 g/dl (6.4-8.2) 12/14/16 07:45 Albumin 3.2 g/dl (3.4-5.0) L 12/14/16 07:45 Urine Color Ltyellow 12/14/16 11:31 Urine Appearance Clear 12/14/16 11:31 Urine pH 5.0 (5.0-8.0) 12/14/16 11:31 Ur Specific [place] 1.015 (1.005-1.025) 12/14/16 11:31 Urine Protein Negative (NEGATIVE) 12/14/16 11:31 Urine Glucose (UA) Negative (NEGATIVE) 12/14/16 11:31 Urine Ketones Negative (NEGATIVE) 12/14/16 11:31 Urine Blood 1+ (NEGATIVE) H 12/14/16 11:31 Urine Nitrite Negative (NEGATIVE) 12/14/16 11:31 Urine Bilirubin Negative (NEGATIVE) 12/14/16 11:31 Urine Urobilinogen Negative mg/dL (0.2-1.0) 12/14/16 11:31 Ur Leukocyte Esterase Negative (NEGATIVE) 12/14/16 11:31 Urine RBC 1 /hpf (0-3) 12/14/16 11:31 Urine WBC 1 /hpf (3-5) 12/14/16 11:31 Urine Mucus Rare 12/14/16 11:31 RPR Titer Nonreactive (NONREACTIVE) 12/14/16 07:45 HIV 1&2 Antibody Screen Negative 12/14/16 08:00 HIV P24 Antigen Negative 12/14/16 08:00 ABSCESS BOTH WRISTS--TREATED. - Treatment Hospital Course: Detox Protocol Followed, Detoxed Safely, Responded well, Discharged Condition Good - Medication Discharge Medications: Ambulatory Orders NK [No Known Home Medication] 12/13/16 - Diagnosis (1) Opioid dependence with withdrawal Status: Acute (2) Uncomplicated sedative, hypnotic or anxiolytic withdrawal Status: Acute (3) Weight loss Status: Acute (4) Hepatitis C Status: Chronic Qualifiers: Viral hepatitis chronicity: chronic Hepatic coma status: without hepatic coma Qualified Code(s): B18.2 - Chronic viral hepatitis C; B18.2 - Chronic viral hepatitis C; B18.2 - Chronic viral hepatitis C; B18.2 - Chronic viral hepatitis C - AMA Did Patient Leave Against Medical Advice: No
[2016-12-18 09:32] VITALS: BP 104/69; PULSE 83; TEMP 96.8
[2016-12-18] MEDS: PRENATAL VITAMINS W/ FOLIC ACID TABLET (FP) PO SCH (11:19)
== END 2016-12-18 09:30 | disposition home or self-care (01) | DRG 897 ==
LOC: YASAS 14:59 → Y3N 17:10
PROVIDERS: ADMIT Internal Medicine; ATTEND Internal Medicine
PROC: HZ2ZZZZ Detoxification Services for Substance Abuse Treatment (ICD-10-PCS; principal; 2016-12-13)
DX: F11.23 Opioid dependence with withdrawal (principal); F13.230 Sedative, hypnotic or anxiolytic dependence with withdrawal, uncomplicated; B18.2 Chronic viral hepatitis C; M71.032 Abscess of bursa, left wrist; M71.031 Abscess of bursa, right wrist; R63.4 Abnormal weight loss; Z68.27 Body mass index [BMI] 27.0-27.9, adult
CPT/HCPCS: 36415; 80053; 81003; 81015; 85027; 86593; 87389; 93005; 93010